=== PATIENT | male | born 1950 | race Caucasian/White ===

== ENCOUNTER 2017-10-16 08:08 | Day surgery (SDC) | payer MEDICARE ==
[2017-10-15 10:04] VITALS: BMI 34.9
[2017-10-16 09:13] LABS: #Basophils 0.1 thou/uL (0.0-0.2); #Eosinphils 0.2 thou/uL (0.0-0.7); #Monocytes 0.6 thou/uL (0.11-0.59); #Neutrophils 3.8 thou/uL (1.40-6.50); %Basophils 0.8 % (0.0-1.0); %Eosinophils 3.3 % (0.0-10.0); %Lymphocytes 29.5 % (21.0-51.0); %Neutrophils 57.5 % (42.0-75.0); Hemoglobin 16.4 g/dL (14.0-18.0); Mean Corpuscular HGB CONC 34.2 g/dL (32.0-36.0); Mean Corpuscular Hemoglobin 32.4 pg (27.0-31.0); Mean Corpuscular Volume 94.7 fl (80.0-94.0); Platelet Count 201 thou/uL (130-400); RBC Distribution Width 11.7 % (11.5-14.5); Red Blood Cell (RBC) Count 5.04 mill/uL (4.70-6.10); White Blood Cell (WBC) Count 6.6 thou/uL (4.8-10.8)
[2017-10-16 09:16] LABS: Bilirubin Negative (Negative); Blood, Urine Negative (Negative); Clarity CLEAR (Clear); Glucose, Urine (Dipstick) Negative (Negative); Leukocyte Negative (Negative); Nitrite Negative (Negative); Protein, Urine (Dipstick) Negative (Neg-Trace); Specific Gravity, Urine 1.018 (1.002-1.036); Urobilinogen 0.2 mg/dL (0.2-1.0)
[2017-10-16 09:18] LABS: Bacteria/HPF None Seen HPF (None Seen); Hyaline Casts/LPF 0-3 HYALINE CAST LPF (0-3 Hyaline); RBC/HPF 0-3 HPF (0-3); Squamous Epithelial None Seen HPF (0-3); WBC/HPF 0-3 HPF (0-3)
[2017-10-16 09:35] LABS: Anion Gap 11 mmol/L (10-20); BUN (Urea Nitrogen) 17 mg/dL (8.4-25.7); Calc. Creatinine Clearance 118 mL/min (70-130); Calcium 9.6 mg/dL (7.8-10.44); Carbon Dioxide 28 mmol/L (23-31); Chloride 104 mmol/L (98-107); Estimated GFR-MDRD 84; Glucose 126 mg/dL (80-115); Potassium 4.2 mmol/L (3.5-5.1); Sodium 139 mmol/L (136-145)
--- NOTE | 2017-10-16 10:19 | RAD ---
TWO VIEWS OF THE CHEST: DATE: 10/16/17. COMPARISON: None. HISTORY: Preoperative patient. FINDINGS: Postoperative anchors overlie the left humeral head. There is no pneumothorax or pleural fluid. The re is no focal consolidation or alveolar edema. Mild increased linear interstitial density noted in both lung bases. Lungs are mildly hyperinflated. IMPRESSION: Chronic findings as above. No acute findings are seen. POS: [facility]
[2017-10-16] MEDS ORDERED: CEFAZOLIN/Water 2 GM/20 ML SYRINGE ONE (10:37)
[2017-10-16] MEDS ORDERED: Fentanyl 100 MCG/2 ML VIAL ONE (11:32)
[2017-10-16] MEDS ORDERED: Betamet Acet/Betamet Na Ph 30 MG/5 ML VIAL ONE (11:42)
[2017-10-16] MEDS ORDERED: Bupivacaine PF 0.5% 30 ML VIAL ONE (11:42)
[2017-10-16] MEDS ORDERED: Bacitracin Zinc Ointment 30 gm TUBE ONE (11:42)
--- NOTE | 2017-10-16 13:36 | OP ---
DATE OF PROCEDURE: 10/16/2017 PREOPERATIVE DIAGNOSIS: Left carpal tunnel syndrome. FINDINGS: 1. Very tight transcarpal ligament. 2. No tenosynovitis. 3. Near flat in the median nerve. His distal one-half with stippling and early erythema. SURGEON: Dr. Matthew Meléndez ANESTHESIA: General LMA technique, augmented by 10 mL 0.5% Marcaine block. INDICATIONS: Failed conservative treatment with carpal tunnel syndrome equally problematic, more sym ptomatic with left than right including EMG. He has failed conservative treatment. DESCRIPTION OF PROCEDURE: After successful general LMA technique, the limb was prepped and draped. We injected the area with 10 mL 0.5% Marcaine before prepping and draping, and then once prepping and draping was complete, we exsanguinated the limb, inflated the tourniquet to 250 mmHg pressure. Then , our line incision beginning in line with the ring finger from medial to lateral to allow for distal Villafuerte's cardinal line and coursing to a 0.7 mm distal volar wrist flexion crease. We carried this through skin and subcutaneous tissue until we reached the transverse carpal ligament. A combination of blunt dissection, tenotomy scissors, and Foster blade released the transcarpal ligament from the m idpoint distally. We spared all branches of the median nerve to include the motor branch. I then made a similar dissection subcutaneous and visualized the transcarpal ligament proximally and released it in the same manner under direct visualization. This was completely freed well into the v olar fascia. We then inspected the tendons. No tenosynovitis was found, but we found marked stippling and flatten ed median nerve in the sagittal plane without hourglass formation of the frontal plane. We then plac ed 3 mL of Celestone over the nerve, released the tourniquet, obtained hemostasis and closed the woun d with interrupted 4-0 nylon mattress pattern. The patient then had the incision closed with interru pted 4-0 nylon and a bulky dressing was applied with no evidence of anesthetic or operative complicat ion.
[2017-10-16] MEDS ORDERED: Ketorolac Tromethamine 30 MG/ML VIAL ONE ×2 (14:37→15:57)
[2017-10-16] MEDS ORDERED: Lidocaine 1% PF 5 ML VIAL ONE (15:57)
[2017-10-16] MEDS ORDERED: PROPOFOL 200 MG/20 ML VIAL ONE (15:57)
[2017-10-16] MEDS ORDERED: PHENYLEPHRINE-NS 100 MCG/ML 10 ML SYRINGE ONE (15:57)
[2017-10-16] MEDS ORDERED: Ondansetron HCl/PF 4 MG/2 ML Vial ONE (15:57)
[2017-10-16] MEDS ORDERED: Metoclopramide HCl 10 MG/2 ML VIAL ONE (15:57)
[2017-10-16] MEDS ORDERED: Dexamethasone 20 MG/5 ML VIAL ONE (15:57)
== END 2017-10-16 15:30 | disposition home or self-care (01) ==
LOC: SDC 08:08
PROVIDERS: ATTEND Orthopaedic Surgery Hand Surgery
PROC: 01N50ZZ Release Median Nerve, Open Approach (ICD-10-PCS; principal; 2017-10-16)
DX: G56.03 Carpal tunnel syndrome, bilateral upper limbs (principal); M18.0 Bilateral primary osteoarthritis of first carpometacarpal joints; M46.92 Unspecified inflammatory spondylopathy, cervical region; I10 Essential (primary) hypertension; E78.00 Pure hypercholesterolemia, unspecified; Z79.899 Other long term (current) drug therapy
CPT/HCPCS: 71046; 80048; 81001; 85025; 93005; 93010; 96372; J0131; J0702; J1100; J1885; J2001; J2405; J2704; J2765; J3010; S0020